=== PATIENT | female | born 1935 | race Hispanic/Latino ===

== ENCOUNTER 2016-09-11 10:35 | Inpatient (IN) | payer MEDICARE, OTHER ==
[2016-09-11] VITALS (8 sets, daily range): BP systolic 120–153; BP diastolic 29–67; PULSE 70–103; RESP 18–23; O2SAT 82–96
[~2016-09-11] VITALS: Ht 144.8 cm; Wt 71.3 kg
[~2016-09-11 10:35] MED LIST: AMT25T PO; CHOL100043 PO; DONE5TAB30 PO; FURO-129 PO; GABA-502 PO; GABA400C PO; LOSA25TA21 PO; LOVA20TA PO; MULT-1018 PO; QUET25TA PO; SERT100T9 PO; SOLI5TAB2 PO; TRAM50TA2 PO
--- NOTE | 2016-09-11 10:38 | ED.REPORT ---
HPI-Dyspnea / Wheezing Date of Service Sep 11, 2016 ED Provider: Can Alejo Patient is an 81 year old female who presents to the ED via EMS complaining of SOB onset today. She was seen at the doctor yesterday for fever (99-100) and cough where she was diagnosed with the flu. She has not began her course of Tamiflu but has taken two doses of azithromycin yesterday (none today). Today her fever has continued to rise and she developed SOB. She denies chest pain, nausea, vomiting, or any other symptoms. Speech is difficult to understand at baseline. Patient is a poor historian. Per family, patient is FULL CODE. Nursing Notes Stated Complaint: COUGH/ FLU SYMPTOMS Nursing Notes Reviewed: Yes (Ide[employer] not reconciled) Allergies: Coded Allergies: ibuprofen (Verified Adverse Reaction, Mild, Nausea, 07/15/16) Scheduled Amitriptyline (Amitriptyline) 25 Mg Tab 25 MG PO HS Cholecalciferol (Vitamin D3) (Vitamin D) 1,000 Unit Tablet 1,000 UNIT PO DAILY Donepezil (Donepezil) 5 Mg Tablet 10 MG PO AM Furosemide (Lasix) 20 Mg Tablet 20 MG PO DAILY Gabapentin (Gabapentin) 300 Mg Capsule 600 MG PO HS Gabapentin (Neurontin) 400 Mg Capsule 600 MG PO DAILY Losartan Potassium (Losartan Potassium) 25 Mg Tablet 25 MG PO DAILY Lovastatin (Lovastatin) 20 Mg Tablet 20 MG PO DAILY Multivitamin (Multi Vitamin Daily) 1 Each Tablet 1 EACH PO DAILY Quetiapine Fumarate (Seroquel) 25 Mg Tablet 50 MG PO HS Sertraline HCl (Sertraline) 100 Mg Tablet 100 MG PO HS Solifenacin Succinate (Vesicare) 5 Mg Tablet 5 MG PO HS Tramadol (Tramadol) 50 Mg Tablet 50 MG PO AM General Time Seen by MD: 10:37 Chief Complaint Shortness of breath Hx Obtained From: Other family... Arrived By: Ambulance Recent Healthcare: Recent doctor visit Past Medical History Past Medical History Notes: Patient seen yesterday at Dr. Marvin Christiansen's outpatient office for cough and weakness, flu test positive started on Tamiflu, also empiric azithromycin provided. Also urine done, negative, no culture indicated Past Medical History mild dementia chronic pain due to degenerative disk disease of the spine chronic depression mild chronic kidney disease mild chronic thrombocytopenia diabetes hypertension Past Surgical History Reports: Back/neck surgery Smoking History Never Smoker Social History Alcohol Use: Denies alcohol use Drug Use: Denies drug use Other Social History: Good social support Review of Systems Constitutional: Reports: Fever Respiratory: Reports: Non-productive cough, Shortness of breath Cardiovascular: Denies: Chest pain Complete sys rev & neg: except as marked. GI: Denies: Nausea, Vomiting Physical Exam Initial Vital Signs Vital Signs (First) Date Time Temp Pulse Resp B/P Pulse Ox O2 Delivery O2 Flow Rate FiO2 09/11/16 10:45 37.7 103 22 153/43 82 Room Air 09/11/16 10:48 4 Initial VS: Reviewed, Unavailable Head / Eyes: Atraumatic, Normocephalic Abdomen / GI: Soft, Non-tender Skin: Warm, Dry General/Constitutional: Awake, Alert Demented Speech difficult to understand. Neck: Atraumatic Wheezing / Retractions: Positive: Wheezing mild (scattered ) Scattered wheezes and rhonchi Sputtering cough Not dyspnic Cardiovascular: Heart rate NL, Peripheral circulation NL ENT: Airway patent Mouth: Positive: Mucous membranes dry Right Elbow: Positive: Deformity present R elbow has abnormality, chronic Ankle / Foot: No swelling Chronic foot drop. Interpretation & Diagnostics Lab Results Interpretation Result Diagram: 09/11/16 1030 09/11/16 1030 Test 09/11/16 10:30 09/11/16 11:50 09/11/16 12:13 White Blood Count 13.9th/mm3 (3.8-10.1) Red Blood Count 3.15mil/mm3 (3.90-5.20) Hemoglobin 10.6g/dL (12.0-15.6) Hematocrit 32.6% (35.0-46.0) Mean Corpuscular Volume 103.5fL (81-100) Mean Corpuscular Hemoglobin 33.7pg (27.0-35.0) Mean Corpuscular Hemoglobin Concent 32.5% (32.0-37.0) Red Cell Distribution Width 14.8% (12.3-15.4) Platelet Count 85bil/L (150-400) Neutrophils (%) (Auto) 77.1% (40-74) Lymphocytes (%) (Auto) 13.3% (14-46) Monocytes (%) (Auto) 8.9% (4-12) Eosinophils (%) (Auto) 0.1% (0-5) Basophils (%) (Auto) 0.2% (0-3) Sodium Level 139mEq/L (134-144) Potassium Level 4.1mEq/L (3.5-5.2) Chloride Level 99mEq/L (97-108) Carbon Dioxide Level 29mmol/L (18-29) Blood Urea Nitrogen 19mg/dL (8-27) Creatinine 1.09mg/dL (0.57-1.00) Estimat Glomerular Filtration Rate 69mL/min (>59) Glucose Level 99mg/dL (60-99) Calcium Level 9.4mg/dL (8.5-10.1) Total Bilirubin 1.0mg/dL (0.0-1.2) Aspartate Amino Transf (AST/SGOT) 106U/L (0-50) Alanine Aminotransferase (ALT/SGPT) 38U/L (0-32) Alkaline Phosphatase 233U/L (25-165) Troponin T 0.049ug/L (0.0-0.011) Total Protein 7.3g/dL (6.4-8.4) Albumin 2.4g/dL (3.4-5.0) Lactic Acid Level 2.2mmol/L (0.4-2.0) Urine Color Yellow (YELLOW) Urine Appearance Hazy (CLEAR,HAZY) Urine pH 6.0 (5.0-8.0) Urine Specific Kenneth 1.018 (1.003-1.035) Urine Protein 100mg/dL (NEG,TRACE) Urine Glucose (UA) Negativemg/dL (NEGATIVE) Urine Ketones Negativemg/dL (NEGATIVE) Urine Occult Blood Moderate (NEGATIVE) Urine Nitrite Negative (NEGATIVE) Urine Bilirubin Negative (NEGATIVE) Urine Urobilinogen Normalmg/dL (NORMAL) Urine Leukocyte Esterase Negative (NEGATIVE) Urine RBC 0-2/hpf (0-2) Urine WBC 0-5/hpf (0-5) Urine Epithelial Cells Occasional/hpf (NONE-MOD) Urine Crystals Amorphous urates (NONE Urine Bacteria None/hpf (NONE-FEW) Urine Hyaline Casts Occasional/lpf (NONE) Urine Granular Casts None seen (NONE SEEN) Urine Waxy Casts None seen (NONE SEEN) Urine Red Blood Cell Casts None seen (NONE SEEN) Urine White Blood Cell Casts None seen (NONE SEEN) Urine Mucus None seen (None Seen) Urine Trichomonas None seen (NONE SEEN) Urine Yeast None (NONE SEEN) Urinalysis Comment Renal epi seen Urine Culture Reflexed Not indicated Lab Results Interpretation: CBC positive leukocytosis, mild thrombocytopenia, chronic CMP normal Influenza positive at PCP office yesterday Blood culture 2 pending Lactic acid 2.2, marginally elevated Troponin elevated, suspect primary hypoxia rather than primary cardiac ECG Interpretation Time: 11:22 Interpreted by: ED physician ECG Interpretation: Sinus rate 84 No ischemic changes Time: 13:09 Interpreted by: ED physician X-Ray Chest Interpretation Chest Xray Interpretation: IMPRESSION: Worsening right lung opacities raising the possibility of developing pneumonia, in the setting of pulmonary edema. Please correlate clinically Dictated by: Juan Alexandra M.D. on 09/11/2016 at 14:20 Approved by: Juan Alexandra M.D. on 09/11/2016 at 14:20 View: Portable, 1 view Interpretation / Wet Read by: Interpret - Radiologist Re-Eval/Medical Decision Med Decision/Clinical Course This is an 81-year-old female is had a cough and congestion over the past week, was seen yesterday basically's office diagnosed with a positive influenza, questionable pneumonia and started on Tamiflu and Zithromax. Palpation worsening shortness of breath and global weakness and was brought in, and found to be significantly hypoxic. She is full code according to family. She does have moderate dementia, and yesterday she had radiographs of her lumbar spine which the radiologist concern about metastatic breast cancer-1 about this up, family question any known history of breast cancer. They report issue that brought them in today however, was the respiratory one. She has a hacking cough, mildly short of breath but not severely dyspneic, but does have a significant O2 requirement and required 4 L to maintain oxygenation. Treatment today's consistent with pneumonia. Blood work is also consistent- positive leukocytosis and mild lactic acidosis. Blood cultures, started on ceftriaxone and Zithromax, to continue Tamiflu, isolation precautions for influenza were continued. The patient is receiving IV fluids. The patient is being admitted for continued management and the case discussed with hospitalist. Source of Hx: Old records Re-Evaluation/Progress : Time of Eval: 11:06 Re-Evaluation/Progress Note: Discussed desire for admission with patient's family. Patient's family understands and agrees with plan. All questions addressed at this time. Consultation : Referral / Consult Name: Paulo Hinkle MD Consulted With: Hospitalist Call Returned at: 13:00 Archeology Faculty Member: Will see patient, Agrees with eval, Agrees with plan, Accepts admit Note: Discussed patient's case. Accepts admit. Differential Diagnosis: Positive: Pneumonia, Negative: Airway obstruction, Cardiogenic shock, Foreign body airway, Pulmonary embolism, Respiratory failure Counseled Regarding: Diagnosis, Lab results, Need for admission Discharge & Departure Impression: Primary Impression: Pneumonia Pneumonia type: due to unspecified organism Laterality: bilateral Lung location: lower lobe of lung Qualified Code: J18.9 - Pneumonia, unspecified organism Additional Impressions: Hypoxia Influenza Elevated troponin Elevated lactic acid level Disposition: ADMITTED TO HOSPITAL Referrals: Estelita Santos (PCP) Scribe Attestation Portions of this note were transcribed by Collette Lozano. I, Dr. North personally performed the history, physical exam and medical decision-making; I reviewed and confirmed the accuracy of the information in the transcribed note. Signed by: Collette Lozano 09/11/16, 1500 copies to: Matt Mark MD, Matthew F MD Sep 11, 2016 10:38 COLLETTE LOZANO Sep 11, 2016 11:07
[2016-09-11] MEDS ORDERED: Albuterol-Ipratropium 3 mL Inhalation Solution NEB ONE (10:50)
[2016-09-11] MEDS ORDERED: 0.9% Sodium Chloride 1,000 ML IV ONE (10:50)
[2016-09-11 11:03] LABS: BASOPHILS % (AUTO) 0.2 % (0-3); EOSINOPHILS % (AUTO) 0.1 % (0-5); MONOCYTES % (AUTO) 8.9 % (4-12); Mean Corpuscular Hemoglobin 33.7 pg (27.0-35.0); Mean Corpuscular Volume 103.5 fL (81-100); NEUTROPHILS % (AUTO) 77.1 % (40-74); Platelet Count 85 bil/L (150-400)
[2016-09-11 12:03] LABS: TROPONIN T 0.049 ug/L (0.0-0.011)
[2016-09-11 12:40] LABS: APPEARANCE,URINE HAZY (CLEAR,HAZY); COLOR,URINE YELLOW (YELLOW)
[2016-09-11] MEDS ORDERED: cefTRIAXone Inj 2,000 MG in IV Premix 1 EACH IV ONE (12:40)
[2016-09-11 12:41] LABS: OCCULT BLOOD,URINE MODERATE (NEGATIVE); UROBILINOGEN,URINE NORMAL (NORMAL)
[2016-09-11] MEDS ORDERED: Ondansetron 2 mg/mL 2 mL Inj IVPUSH PRN (13:00)
[2016-09-11] MEDS ORDERED: Polyethylene Glycol (PEG) 17 Gm Powder PO PRN (13:00)
[2016-09-11] MEDS: 0.9% Sodium Chloride 1,000 ML IV SCH ×2 (13:30→22:56)
--- NOTE | 2016-09-11 13:46 | PCM.HPMED ---
Subjective Date of Service Sep 11, 2016 Primary Provider: Admitting Physician: Paulo Hinkle MD Primary Care Physician: Estelita Santos Attending Physician: Paulo Hinkle MD Admit Status: From the Emergency Department, Full Admit, Admit to [facility], [facility] Telemetry Chief Complaint: Cough, dyspnea, although a troponin. History of Present Illness: This is a pleasant 81-year-old female who lives at home with family. She has a history of dementia. She has been in L4 approximately 3 or 4 days with rhinorrhea and a cough. Because of increased weakness and dyspnea as well as persistence of cough she was seen in urgent care yesterday. Nasal PCR was positive for influenza A. There were infiltrates in x-ray. She was given azithromycin and took 2 pills yesterday as well as a prescription for Tamiflu but has not filled this yet. She came in today because of persistence or worsening of all the above-mentioned symptoms. She also has anorexia and feels generally dehydrated. No fevers chills or rhinitis. She denies diarrhea. She is not really having chest or abdominal pain Review of Systems: No fever she does have hearing loss. No visual changes. No hematuria or dysuria. No fevers or chills. No vomiting. No myalgias. Also reviewed and otherwise negative except as noted in history of present illness Allergies Coded Allergies: ibuprofen (Verified Adverse Reaction, Mild, Nausea, 07/15/16) Home Medications Losartan 25 mg daily, lovastatin 20 mg daily, tramadol 50 mg twice a day as needed donepezil 10 mg daily vitamin D 1000 units daily quetiapine 25 mg as needed sertraline 100 mg daily Vesicare 5 mg daily gabapentin 400 mg daily daily at bedtime amitriptyline 25 mg for neuropathy PMH 1. Dementia 2. Hypertension 3. Chronic pain syndrome. 4. Restless leg syndrome 5. Neuropathy a right foot drop which is chronic following back surgery. Surgical History Lower back surgery, residual right foot drop Social History Hx Alcohol Use: Yes Hx Substance Use: No Smoking Status: Never Smoker Living Arrangement: with Family Exam Vital Signs Vital Sign - Last Date Time Temp Pulse Resp B/P Pulse Ox O2 Delivery O2 Flow Rate FiO2 09/11/16 12:33 90 23 134/29 96 Nasal Cannula 4 09/11/16 10:45 37.7 Exam She is alert and oriented no acute distress. Fluent speech. Normal skull. Anicteric sclerae, symmetric pupils. Normal nose and ears Mouth is unremarkable, dry mucosa. No droop. Neck is supple. Normal thyroid. No adenopathy. Lungs are clear, normal effort. Heart is regular without murmur gallop or rub Abdomen is soft nondistended without focal tenderness. Extremities are free of edema. Good pedal and radial pulses Skin is free of rash, lesions. No petechiae. Cranial nerves are intact Muscles with normal strength. She does have a chronic flexure of the right foot in a plantar flexion. Lab and Diagnostics Labs Troponin elevated 0.054. She does have a history of chronic kidney disease and previous troponin elevation. No known history of heart disease. Result Diagram: 09/11/16 1030 09/11/16 1030 X-Rays, CTs and MRIs Chest x-ray indicates minor bilateral infiltrates 12-lead ECG Sinus rhythm, nonspecific ST segment changes. Assessment & Plan 1. Influenza A. POA. The patient appears to have acute respiratory distress secondary to her flu A. We will start Tamiflu, oxygen supplementation as needed. 2. Possible secondary pneumonia. POA. Azithromycin 250 by mouth daily. 3. Dementia. POA. Donepezil less scheduled 4. Chronic hypertension. POA. Losartan 25 daily. 5. Elevated troponin with history of chronic kidney disease and previous elevations. POA. We will trend. ECG is not alarming. 6. Volume depletion. POA. IV fluids. Patient's code status confirmed with family including 2 daughters one is power of algologist for healthcare. Admitted inpatient status with estimated length of stay of over 2 nights medical complexity and severity of illness. Pain Evaluation: Adequate Pain Control Resuscitation Status: CPR: Attempt Resuscitation Time spent 45 minutes Paulo Hinkle MD Sep 11, 2016 13:46
--- NOTE | 2016-09-11 14:22 | DRSVH ---
PROCEDURE: X-RAY CHEST ONE VIEW, PORTABLE ([id number]) INDICATIONS: fever, shortness of breath, hypoxia TECHNIQUE: One view of the chest was acquired. COMPARISON: [facility], CR, XR CHEST 2VW, 09/10/2016, 14:45. FINDINGS: Surgical changes and devices: Spine fixation hardware . Lungs and pleura: Increasing ill-defined consolidation within the right upper lobe and right lower lo be. Diffuse bilateral groundglass opacities are again noted Mediastinum: Mediastinal contours appear normal. Heart size is normal. Bones and chest wall: No suspicious bony lesions. Overlying soft tissues appear unremarkable. IMPRESSION: Worsening right lung opacities raising the possibility of developing pneumonia, in the setting of pul monary edema. Please correlate clinically Dictated by: Juan Alexandra M.D. on 09/11/2016 at 14:20 Approved by: Juan Alexandra M.D. on 09/11/2016 at 14:20
[2016-09-11] MEDS ORDERED: GABA-504 PO (15:17)
[2016-09-11] MEDS ORDERED: DONE10TA42 PO (15:17)
[2016-09-11] MEDS: Heparin 5,000 Unit/mL Inj SUBQ SCH ×2 (17:37→17:51)
--- NOTE | 2016-09-11 17:57 | NUR ---
admit Pt admitted to PCC room 2030 from ER at 1425, pt has baseline dementia and very hard of hearing, but is cooperative and pleasant with care, accompanied by family. Alert but forgetful. IV NS@100ml/hr infusing per orders. Oriented to room and call light, dang bed alarm and yellow socks, call light in reach. PO tamiflu and zithromax given per orders. Pt had swallow eval at bedside. Intermittent non-productive cough. Turning and positioning q2hr with assist, per daughter pt is bedbound at baseline. Pt with non-blanchable redness on sacrum but no open areas, mepilex applied, melissa 12, PUP initiated. Pt reports improvement in her breathing from this morning. Call light in reach. Will continue to monitor.
--- NOTE | 2016-09-11 23:18 | NUR ---
HARD OF HEARING/Q2 TURNS Pt very hard of hearing, but very pleasant and cooperative with care. Pt's daughter very involved with pt's care. Pt daughter called to check in @ 2200 making sure pt was doing ok. Pt vitals stable, 4L o2 NC sating at 93%. Pulse oximeter placed r/t high score for PARI. Pt is very weak in the lower extremities, Q2 turns. Pt's daughter stated that her mother has been bedridden since June of this year due to he lower extremity weakness. Pt also has right foot drop. No other issues noted at this time.
[2016-09-12] VITALS (9 sets, daily range): BP systolic 120–181; BP diastolic 49–73; PULSE 79–88; RESP 18–20; O2SAT 91–96
[2016-09-12] MEDS: Heparin 5,000 Unit/mL Inj SUBQ SCH ×4 (00:20→19:50)
[2016-09-12 03:49] LABS: BASOPHILS % (AUTO) 0.3 % (0-3); EOSINOPHILS % (AUTO) 0.1 % (0-5); Mean Corpuscular Hemoglobin 33.6 pg (27.0-35.0); Mean Corpuscular Volume 101.7 fL (81-100); NEUTROPHILS % (AUTO) 86.2 % (40-74); Platelet Count 76 bil/L (150-400)
[2016-09-12] MEDS: 0.9% Sodium Chloride 1,000 ML IV SCH ×2 (09:22→19:48)
--- NOTE | 2016-09-12 11:35 | PCM.PNMED ---
Subjective Date of Service Sep 12, 2016 Subjective She is doing well. She still has a cough mostly nonproductive. She feels a little less short of breath. No chest pain or palpitations no bowel pain or nausea. Exam Vital Signs Vital Sign - Last Date Time Temp Pulse Resp B/P Pulse Ox O2 Delivery O2 Flow Rate FiO2 09/12/16 10:04 82 09/12/16 08:35 Supplement Oxygen 09/12/16 07:34 36.8 150/52 94 4.00 09/12/16 03:02 18 Intake and Output 09/11/16 09/11/16 09/12/16 Cumulative From/Thru 15:00 23:00 07:00 09/11/16 10:45 - 09/12/16 06:16 Intake Total 1000 ml 550 ml 1224 ml 2774 ml Output Total 300 ml 1 ml 301 ml Balance 1000 ml 250 ml 1223 ml 2473 ml Intake Oral 100 ml 100 ml 200 ml IV Total 1000 ml 450 ml 1124 ml 2574 ml Output Urine Total 300 ml 1 ml 301 ml # Bowel Movements 1 0 1 Exam There are no oriented 3. No distress. Neck is supple. Lungs on the fertility for breath sounds with some rhonchi scattered and expiratory wheezing. Heart is regular without murmur gallop or rub. Abdomen is soft. Extremities are free of edema good pedal pulses. IVs and Medications Medications Reviewed: Medications were reviewed in detail Lab and Diagnostics Result Diagram: 09/12/16 0340 09/12/16 0340 X-Rays, CTs and MRIs Chest x-ray indicates minor bilateral infiltrates 12-lead ECG Sinus rhythm, nonspecific ST segment changes. Assessment & Plan 1. Influenza A. POA. The patient appears to have acute respiratory distress secondary to her flu A. Continue Tamiflu and oxygen as needed. 2. Possible secondary pneumonia. POA. Azithromycin 250 by mouth daily. Respiratory status is stable to improved we will continue this. 3. Dementia. POA. Donepezil less scheduled 4. Chronic hypertension. POA. Losartan 25 daily. 5. Elevated troponin with history of chronic kidney disease stage 3 and previous elevations. POA. We will trend. ECG is not alarming. We will repeat her troponin today. She has had a history of chronic troponin anemia. 6. Volume depletion. POA. IV fluids. She also had a lactic acidosis, we will follow-up with a repeat lactate after volume repletion. Patient's code status confirmed with family including 2 daughters one is power of drive man for healthcare. Admitted inpatient status with estimated length of stay of over 2 nights medical complexity and severity of illness. Pain Evaluation: Adequate Pain Control Resuscitation Status: CPR: Attempt Resuscitation Time spent 25 minutes Paulo Hinkle MD Sep 12, 2016 11:35
--- NOTE | 2016-09-12 18:46 | NUR ---
BM/Bladder Scan Pt had large, firm brown BM earlier in shift, incontinent and wearing brief. Bladder scan revealed 739mls. Pt states, "I want to try to use the bedpan" pt put on bedpan. traffic recorder notified; awaiting orders. Will continue to monitor with frequent rounds.
--- NOTE | 2016-09-12 19:05 | NUR ---
Bladder scan was done at 1650, scanned for 756ml. Nurse is contacting doctor about aliya. Straight cath to happen within the next half hour if no response. Addendum: 09/12/16 at 1907 by PORFIRIO ESPINOZA CNA Amended: Links added.
--- NOTE | 2016-09-12 22:56 | NUR ---
Pt was bladder scanned @ 756 ml per shift report, MARILIA haider'edin, removed 400 ml. Pt stated she felt much better, abdomen soft and non-tender. Pt vitals stable, no c/o pain. Pt repositioned for comfort and skin integrity, Q2 turns. Addendum: 09/13/16 at 0153 by DOUG SMITH RN O2 Pt displayed labored mouth breathing, de-sated to low 80's, O2 via NC was increased from 4L to 8L with minimal change. Pt was switched to an oxy-mask @ 7L O2 and was sating mid 90's. Pt was titrated down to 4L oxy-mask and stayed sating mid-low 90's. Addendum: 09/13/16 at 0646 by DOUG SMITH RN MENTATION Pt lethargic throughout the night, ordered ABG's, pCO2 elevated to 51, and pH 7.312. Pt continues to use oxy-mask 4L and sating mid 90's. Charge nurse and on-coming nurse notified of current ABG results.
[2016-09-13] VITALS (10 sets, daily range): BP systolic 98–120; BP diastolic 53–68; PULSE 75–83; RESP 18–30; O2SAT 91–97
[2016-09-13] MEDS: 0.9% Sodium Chloride 1,000 ML IV SCH ×2 (01:55→18:23)
--- NOTE | 2016-09-13 06:22 | ABG ---
DateTimeAnalyzed 06:18:00 -_ pH ____7.312 - 7.350 7.450 pCO2 ___50.5__ -mmHg 35.0 45.0 pO2 ___74.3__ -mmHg 69.0 116 HCO3- ___24.8__ -mmol/L 22.0 26.0 ABE ___-1.1__ -mmol/L -2.0 2.0 tHb ____8.9__ -g/dL O2Hb ___91.5__ -% COHb ____0.9__ -% MetHb ____1.3__ -% sO2 ___93.6__ -% FIO2 ___31.0__ -% Drawn By blf - Date/Time Notified____ 06:22:00 -_ Spontaneous_RR ___26.0__ -b/min Liter_Flow ____4.0__ -L/min Oxygen Device 1 _OXY MASK - Notified By blf - Notified Whom RN - B 747 -mmHg tO2 ___11.5__ -Vol% Paulo test _Positive -
[2016-09-13] MEDS ORDERED: 0.9% Sodium Chloride 250 ML IV ONE (10:35)
--- NOTE | 2016-09-13 10:37 | PCM.PNMED ---
Subjective Date of Service Sep 13, 2016 Subjective More short of breath, more cough. More tachypneic. May be more confused. Denies pain. Exam Vital Signs Vital Sign - Last Date Time Temp Pulse Resp B/P Pulse Ox O2 Delivery O2 Flow Rate FiO2 09/13/16 06:36 Supplement Oxygen 09/13/16 03:06 36.4 78 18 120/68 94 4.00 Intake and Output 09/12/16 09/12/16 09/13/16 Cumulative From/Thru 15:00 23:00 07:00 09/11/16 10:45 - 09/13/16 06:36 Intake Total 1630 ml 770 ml 5174 ml Output Total 301 ml Balance 1630 ml 770 ml 4873 ml Intake Oral 400 ml 350 ml 950 ml IV Total 1230 ml 420 ml 4224 ml Output Urine Total 301 ml # Voids 3 3 # Bowel Movements 2 1 4 Exam In moderate distress. She is tachypneic and has secretions. Anicteric sclera. Neck supple. Lungs expiratory wheezes scattered rhonchi and increased effort and rate. Heart is regular without murmur gallop or rub Abdomen is soft nontender extremities are free of edema good pedal pulses. IVs and Medications Medications Reviewed: Medications were reviewed in detail Lab and Diagnostics Result Diagram: 09/12/16 1855 09/12/16 0340 X-Rays, CTs and MRIs Chest x-ray indicates minor bilateral infiltrates 12-lead ECG Sinus rhythm, nonspecific ST segment changes. Assessment & Plan 1. Acute hypoxic and hypercarbic respiratory failure. The patient appears to be worsening clinically. Will expand antibiotic coverage, repeat chest x-ray, repeat blood gas which showed early hypercarbia around midnight last night and start BiPAP support. I discussed these interventions with family. 2. Sepsis. The patient is hypotensive has increased evidence of confusion and respiratory failure. We will fluid bolus her and check a lactic acid. Antibiotic coverage has been broadened, we will continue Tamiflu. 3. Influenza A. POA. Continue Tamiflu and oxygen as needed. 4. Possible secondary pneumonia. POA. Azithromycin 250 by mouth daily. Her respiratory status is worsening, will add ceftriaxone every 24 hours. 5. Dementia. POA. Donepezil less scheduled 6. Chronic hypertension. POA. We will hold blood pressure medications. 7. Elevated troponin with history of chronic kidney disease stage 3 and previous elevations. POA. We will trend. ECG is not alarming. We will repeat her troponin today. She has had a history of chronic troponin anemia. We will repeat a troponin. 6. Volume depletion. POA. IV fluids. Patient's code status confirmed with family including 2 daughters one is power of hat brim and crown laminating operator for healthcare. Admitted inpatient status with estimated length of stay of over 2 nights medical complexity and severity of illness. We will re-discuss level of care with family after much her clinical condition next hour or 2. Pain Evaluation: Adequate Pain Control VTE Mechanical Devices: Intermittant Pneumatic CD Resuscitation Status: CPR: Attempt Resuscitation Time spent 30 minutes Paulo Hinkle MD Sep 13, 2016 10:37
[2016-09-13] MEDS: Tolterodine ER 2 mg ER24 Capsule PO SCH (10:41)
[2016-09-13] MEDS: Heparin 5,000 Unit/mL Inj SUBQ SCH ×2 (10:41→18:23)
--- NOTE | 2016-09-13 11:24 | ABG ---
DateTimeAnalyzed 11:19:00 -_ pH ____7.358 - 7.350 7.450 pCO2 ___43.9__ -mmHg 35.0 45.0 pO2 ___68.5__ -mmHg 69.0 116 HCO3- ___24.1__ -mmol/L 22.0 26.0 ABE ___-0.8__ -mmol/L -2.0 2.0 tHb ____9.3__ -g/dL O2Hb ___91.0__ -% COHb ____0.9__ -% MetHb ____1.1__ -% sO2 ___92.9__ -% FIO2 ___21.0__ -% Pressure_Support ___12.0__ -cmH2O PEEP ____7.0__ -cmH2O Drawn By lw - Date/Time Notified____ 11:24:00 -_ Spontaneous_RR ___24.0__ -b/min Oxygen Device 1 NPPV - Notified By lw - Notified Whom ___Dr. Manan - B 748 -mmHg tO2 ___12.0__ -Vol% Paulo test _Positive -
[2016-09-13] MEDS: cefTRIAXone Inj 1,000 MG in IV Premix 1 EACH IV SCH (11:56)
[2016-09-13] MEDS: MethylprednisoLONE Sodium Succinate 40 mg/mL Inj IVPUSH SCH ×2 (11:56→18:23)
[2016-09-13] MEDS: Albuterol 0.5% (5mg/mL) 20 mL Inhalation Solution NEB SCH ×3 (12:30→20:30)
--- NOTE | 2016-09-13 12:51 | NUR ---
09/13/16 Wound Care [facility] Patient assessed per pressure ulcer protocol. Patient with multiple areas of bruising. Stage I non-blanchable red area to sacrum present on admission. Remainder of skin intact. Patient and family instructed in q2 hour turning. Daughter states patient has been using donut cushion at home due to redness. Patient currently on low air loss bed. Nursing to turn q2 hours and float heels. Remainder of skin intact. Wound care to follow up as needed.
--- NOTE | 2016-09-13 13:19 | NUR ---
NUTRITION CONSULT Assess: 81 YO F admitted for pneumonia and positive for flu. Pt with poor PO intake. PMHX: Dementia, HTN, chronic pain syndrome, restless leg syndrome, neuropathy. DIET: Full liquids. PO intake bites-25%. LABS: Lactic acid 2.3, (09/12): Ca 8.4, Alb 1.9 MEDICATIONS: Reviewed. Solu-medrol. GI: 1 BM 09/13. SKIN: Stg 1 non-blanchable red area to sacrum per wound eval. WEIGHT: 66.8 kg, BMI 31.9 kg/m2. IBW 42.7 kg ESTIMATED NEEDS: BMI/WOUND Calories: 0880-9143 kcal/day (22-25 kcal/kg BW) Protein: 64-77 g/day (1.5-1.8 g/kg IBW) NUTRITION DIAGNOSIS: 1) Inadequate oral intake related to decreased ability to consume sufficient nutrition as evidenced poor PO intake on full liquid diet. 2) Increased nutrient needs related to wound healing as evidenced by Stg 1 sacral wound. INTERVENTION: 1) Will add nutrition supplements to encourage adequate nutrition and aid in wound healing. MONITOR/EVALUATE: PO intake, diet advance/tolerance, labs, GI/nutrition status. Follow per moderate nutrition risk guidelines.
[2016-09-13 14:25] LABS: Mean Corpuscular Hemoglobin 33.2 pg (27.0-35.0); Mean Corpuscular Volume 101.8 fL (81-100)
--- NOTE | 2016-09-13 14:47 | DRSVH ---
PROCEDURE: X-RAY CHEST ONE VIEW, PORTABLE ([id number]) INDICATIONS: dyspnea TECHNIQUE: One view of the chest was acquired. COMPARISON: [facility], CR, XR CHEST 1VW (PORTABLE), 09/11/2016, 11:56. FINDINGS: Surgical changes and devices: Upper lumbar spine fusion. Lungs and pleura: Bilateral diffuse airspace infiltrates are increased. No pleural effusions or pneu mothorax. Mediastinum: Mediastinal contours appear normal. Heart size is normal. Bones and chest wall: No suspicious bony lesions. Overlying soft tissues appear unremarkable. IMPRESSION: Bilateral airspace infiltrates are increased, compatible with worsening of pneumonia or p ulmonary edema. Dictated by: Kerry Pickett M.D. on 09/13/2016 at 14:45 Approved by: Kerry Pickett M.D. on 09/13/2016 at 14:45
--- NOTE | 2016-09-13 16:42 | NUR ---
spiritual care:pt request conversational visit with pt's dtrs at bedside. Pt hard of hearing and fatigued from effort of breathing. Prayer at bedside, dtrs participating. pt jain and agreeable for eucharistic visitors. will plan to follow as needed
--- NOTE | 2016-09-13 19:29 | NUR ---
Pisano/Urinary output/Fluids/Oxygen Patient alert and oriented x2 (did not know year), pleasant, very [place]. Bladder scanner showed greater than 500ccs -- MD consulted, order to place pisano catheter. Urine was seen in tubing, only 50 ccs drained despite placing patient in reverse Trendelenburg. Irrigated with sterile water, no resistance with pushing or drawing back -- fluid irrigated was dark yellow and cloudy. Approx 1 hour later bladder rescanned, still showed over 500ccs -- still only 50ccs in bag, charge nurse notified. New pisano placed, still no more output despite urine seen in irrigation syringe. MD notified, no new orders at this time, care ongoing -- NOC RN aware. Total input of NS 862. Patient placed on Bipap by RT, much more alert and SPO2 remaining in mid 90s.
[2016-09-13] MEDS ORDERED: Albuterol 2.5 mg/3 mL Inhalation Solution NEB ONE ×2 (20:49→23:46)
--- NOTE | 2016-09-13 21:02 | DRSVH ---
[facility] [address] [place] [address] Echocardiogram Report Name: ELIANA AMEZCUA Study Date: 09/13/2016 Height: 57 in Hospital Exam Location: [facility] Weight: 147 lb Gender: Female BSA: 1.6 m2 : 1935 Age: 81 yrs BP: 98/54 mmHg Reason For Study: Dyspnea Ordering Physician: AMEYA LONDON Performed By: Sonal Gil Referring Physician: AMEYA LONDON Interpretation Summary Normal left ventricle size with ejection fraction 60-65%. Grade I diastolic dysfunction. Moderately dilated left atrium. Mildly dilated right atrium. There is no hemodynamically significant valvular aortic stenosis. Mild mitral annular calcification. Mild tricuspid regurgitation. Comparison is made with the echocardiogram of 07/17/16, there has been no significant change. Procedure: A two-dimensional transthoracic echocardiogram with color flow and Doppler was performed. The study quality was technically adequate. Patient supine and on BiPAP machine. Comparison is made with the echocardiogram of 07/17/16. The patient was in normal sinus rhythm during the exam. Left Ventricle: The left ventricle is normal in size. There is normal left ventricular wall thickness. Left ventricular systolic function is normal. The ejection fraction is estimated to be 60-65%. There are no focal wall motion abnormalities. Assessment of diastolic parameters indicates a relaxation abnormality of the left ventricle, consistent with normal filling pressures. Spectral Doppler of the mitral valve is reversed, with an E/A wave ratio < 0.8. Right Ventricle: The right ventricle is normal in size and function. Atria: The left atrium is moderately dilated. The right atrium is mildly dilated. The interatrial septum is intact with no evidence for an atrial septal defect. Mitral Valve: The mitral valve leaflets appear normal. There is no evidence of stenosis, fluttering, or prolapse. There is mild mitral annular calcification. There is no mitral regurgitation noted. Aortic Valve: The aortic valve is trileaflet. The aortic valve opens well. There is slight thickening of the non coronary cusp. There is no hemodynamically significant valvular aortic stenosis. The calculated aortic valve area is 1.7 cm2. The peak aortic velocity is 2.5 m/sec. The aortic valve mean gradient is 13 mmHg. No aortic regurgitation is present. Tricuspid Valve: The tricuspid valve is normal. There is mild tricuspid regurgitation. Pulmonary artery pressures cannot be estimated because of the lack of a measurable TR jet velocity. Pulmonic Valve: The pulmonic valve leaflets are thin and pliable; valve motion is normal. There is trace pulmonic regurgitation. Great Vessels: The aortic root is normal size. The ascending aorta is normal in size. The aortic arch is normal in size. The pulmonary artery is normal size. The IVC is normal in size, collapse could not be accurately assessed. Pericardium/ Pleura There is no pericardial effusion. There is a small left -sided pleural effusion. Ascites is also visualized. MMode/2D Measurements & Calculations LVIDd: 4.6 cm RA long axis LVOT diam: 1.9 cm LVIDs: 3.1 cm LA A2 area: 26.8 cm AoV Openin.4 cm FS: 32.0 % LA A4 area: 24.5 cm RA area Ao root diam: 3.1 cm EPSS: 0.41 cm LA length (vol) asc Aorta Diam IVSd: 0.99 cm : 20.6 cm LVPWd: 0.96 cm LA vol: 94.5 ml RA vol Ao Arch Diam LA vol index : 66.8 ml (Proximal trans.) RA : 42.3 mm2 IVC diam: 1.5 cm LV sharma. diameter/BSALV sys. diameter/BSA TAPSE: 2.5 cm (cm/m^2): 2.9 (cm/m^2): 2.0 Doppler Measurements & Calculations Ao V2 max MV E max ian MV E/A: 0.66 PA V2 max : 246.8 cm/sec : 104.2 cm/sec Med Peak E' Ian : 150.5 cm/sec Ao max P.4 mmHg MV A max ian PA mean PG Ao mean P.7 mmHg : 158.6 cm/sec E/E' med: 14.3 : 6.0 mmHg LVOT Max Ian Lat Peak E' Ian : 139.1 cm/sec E/E' lat: 13.1 HAYLEY(I,D): 1.7 cm MV A dur sev ratio: 0.63 : 0.13 sec MV dec time: 0.24 sec Ao V2 mean LV V1 max PG PA V2 mean : 167.6 cm/sec : 118.7 cm/sec Ao V2 VTI: 49.6 cmLV V1 VTI PA pr(Accel) : 31.0 cm : 5.8 mmHg HAYLEY(V,D): 1.5 cm2 HAYLEY indexed to BSA E/e' average (cm^2/m^2): 1.1 : 13.7 Electronically signed by: Caio Shane on Reading Physician:09/13/2016 09:01 PM
[2016-09-13] MEDS ORDERED: Furosemide 10 mg/mL 4 mL Inj IVPUSH ONE (21:50)
[2016-09-14] VITALS (11 sets, daily range): BP systolic 97–110; BP diastolic 40–58; PULSE 72–84; RESP 20–24; O2SAT 74–95
[2016-09-14] MEDS: Heparin 5,000 Unit/mL Inj SUBQ SCH ×3 (00:47→17:31)
[2016-09-14] MEDS: MethylprednisoLONE Sodium Succinate 40 mg/mL Inj IVPUSH SCH ×3 (00:47→17:31)
[2016-09-14] MEDS: Albuterol 2.5 mg/3 mL Inhalation Solution NEB SCH ×5 (04:01→22:14)
[2016-09-14] MEDS: 0.9% Sodium Chloride 1,000 ML IV SCH ×2 (05:26→12:55)
--- NOTE | 2016-09-14 06:14 | NUR ---
Urinary output/sats/possible thrush Bojorquez bag was dry after several hours at start of shift. Bladder scanner showed about 500 ml. Bojorquez position checked, and flushed with return of very small amount of yellow urine. notified and orders for 40 IV Lasix. Emptied 100 ml total urine from catheter for this shift. Turning pt every 2-3 hours. IV site changed due to occlusion. Sats in mid-90's on bipap. Family have been at bedside - attentive to patient's needs and expressing a lot of anxiety over her condition. Pt tongue red with white coating. C/o soreness. notified and orders for Diflucan. Family aware.
[2016-09-14] MEDS: Tolterodine ER 2 mg ER24 Capsule PO SCH (08:30)
[2016-09-14 08:56] LABS: Mean Corpuscular Hemoglobin 33.7 pg (27.0-35.0); Mean Corpuscular Volume 102.6 fL (81-100)
[2016-09-14 09:47] LABS: TROPONIN T 0.046 ug/L (0.0-0.011)
[2016-09-14] MEDS: cefTRIAXone Inj 1,000 MG in IV Premix 1 EACH IV SCH (10:57)
--- NOTE | 2016-09-14 11:18 | DRSVH ---
PROCEDURE: X-RAY CHEST ONE VIEW, PORTABLE ([id number]) INDICATIONS: dyspnea TECHNIQUE: One view of the chest was acquired. COMPARISON: [facility], CR, XR CHEST 1VW (PORTABLE), 09/13/2016, 11:10. FINDINGS: Surgical changes and devices: Partially visualized cervical fixation screws and fixation plate.. Lungs and pleura: No pleural effusions or pneumothorax. Lungs are abnormal with a diffuse alveolar infiltration pattern but improved from the comparison study one day ago. Mediastinum: Mediastinal contours appear normal. Heart size is normal. Bones and chest wall: No suspicious bony lesions. Overlying soft tissues appear unremarkable. IMPRESSION: Mild interval improvement in the diffuse alveolar infiltration pattern previously present . Incidental note is again made of partially visualized fixation devices over the cervical spine, wh ich could be more accurately assessed by dedicated plain film evaluation through that area if clinica lly desired. Dictated by: Juan Ledesma M.D. on 09/14/2016 at 11:16 Approved by: Juan Ledesma M.D. on 09/14/2016 at 11:16
[2016-09-14] MEDS ORDERED: 0.9% Sodium Chloride 250 ML IV ONE (12:05)
--- NOTE | 2016-09-14 14:13 | NUR ---
Social Work Initial Assessment: SW met with patient at bedside to discuss discharge plan. Patient unable to participate in discharge planning. Patient PONneka/daughter Viola, and Adriana, verified patient information. Patient resides in [facility] with who is frail and provides all support and care for patient. Patient daughter/PONneka Rod states that patient unable to provide support and care due to patient extensive care needs. Patient active with [facility]. Patient has a walker, wheelchair, and commode at home. Patient has previous SNF history at [facility] and wanting SNF placement for detention care upon discharge. Patient payor as Medicare and [employer]. Patient has no detention disability nor VA benefits. Patient pharmacy of choice as [facility]. Patient daughter states that plan is for SNF placement at [facility] for detention care. SW provided SNF list to patient daughter for review for alterative SNF choice. ANGELA provided access to [facility] and faxed face sheet. ANGELA spoke to [facility] admissions rep who was made aware of referral. SW to await clinical acceptance from SNF. Patient on Bipap at this time. SW to follow. PLAN: Possible SNF [facility] (access provided) for backup administrative coordinator care, pending acceptance and clinical course. Current with [facility]. Family unable to care for patient needs at home. Daniela COMBS Addendum: 09/14/16 at 1429 by BO ALVARENGA Amended: Links added. Addendum: 09/14/16 at 1541 by BO ALVARENGA SW contacted and left voice mail message for RONALD Louise to determine if Medicaid application able to be initiated as patient family seeking detention care. ANGELA to follow. Daniela COMBS
--- NOTE | 2016-09-14 15:40 | PCM.PNMED ---
Subjective Date of Service Sep 14, 2016 Subjective Patient is somnolent on BiPAP. Appears comfortable. Can't answer questions. Exam Vital Signs Vital Sign - Last Date Time Temp Pulse Resp B/P Pulse Ox O2 Delivery O2 Flow Rate FiO2 09/14/16 13:13 73 24 95 Nasal Cannula 50 70 09/14/16 11:30 36.8 110/46 Intake and Output 09/13/16 09/13/16 09/14/16 Cumulative From/Thru 15:00 23:00 07:00 09/11/16 10:45 - 09/14/16 05:35 Intake Total 862 ml 412 ml 6448 ml Output Total 100 ml 401 ml Balance 862 ml 312 ml 6047 ml Intake Oral 0 ml 950 ml IV Total 862 ml 412 ml 5498 ml Output Urine Total 100 ml 401 ml # Voids 3 # Bowel Movements 4 Exam Comfortable. Anicteric sclera Lungs with expiratory wheezing, incerased effort. CV regular and without murmur Abdomen soft, ND No edema No rash IVs and Medications Medications Reviewed: Medications were reviewed in detail Lab and Diagnostics Result Diagram: 09/14/16 0553 09/14/16 0553 X-Rays, CTs and MRIs Chest x-ray indicates minor bilateral infiltrates 12-lead ECG Sinus rhythm, nonspecific ST segment changes. Assessment & Plan 1. Acute hypoxic and hypercarbic respiratory failure. The patient appears to be worsening clinically. She has needed BiPAP over night We will continue ABx, tamiflu, repeat CXR and try HF Oxygen. Will re discuss intubation with family as she is not a great candidate for this. 2. Sepsis. The patient is hypotensive has increased evidence of confusion and respiratory failure. We will fluid bolus her and check a lactic acid. Antibiotic coverage has been broadened, we will continue Tamiflu. 3. Influenza A. POA. Continue Tamiflu and oxygen as needed. 4. Possible secondary pneumonia. POA. Azithromycin 250 by mouth daily. Her respiratory status is worsening, will add ceftriaxone every 24 hours.CXR appears a little better. 5. Dementia. POA. Donepezil less scheduled 6. Chronic hypertension. POA. We will hold blood pressure medications. 7. Elevated troponin with history of chronic kidney disease stage 3 and previous elevations. POA. We will trend. ECG is not alarming. We will repeat her troponin today. 8. Volume depletion. POA. IV fluids. She also has low UOP. 9. Lactic acidosis, POA. Continue IVF, and ABx. Follow lactate. Patient's code status confirmed with family including 2 daughters one is power of senior trial attorney for healthcare. Admitted inpatient status with estimated length of stay of over 2 nights medical complexity and severity of illness. We will re-discuss level of care with family after much her clinical condition again later today. Pain Evaluation: Adequate Pain Control VTE Mechanical Devices: Intermittant Pneumatic CD Resuscitation Status: CPR: Attempt Resuscitation Time spent 25 minutes Paulo Hinkle MD Sep 14, 2016 15:40
[2016-09-14 16:42] LABS: Mean Corpuscular Hemoglobin 34.2 pg (27.0-35.0); Mean Corpuscular Volume 101.1 fL (81-100)
--- NOTE | 2016-09-14 17:06 | DRSVH ---
PROCEDURE: US ABDOMEN INDICATIONS: abdomen distension TECHNIQUE: Real-time scanning was performed of the abdominal and retroperitoneal organs, with image documentatio n. COMPARISON: [facility], US, US ABDOMEN, 07/15/2016, 15:16. [facility], ABDOMEN SONOGRAM, 06/26/2013, 9:25. [facility], US, ABDOMEN SON OGRAM, 04/14/2006, 7:42. FINDINGS: Liver length: 12.04 cm Gallbladder Wall Thickness: 3.30 mm CHD: 2.30 mm CBD: 1.20 mm Spleen length: 11.63 cm Right kidney length: 9.20 cm Left kidney length: 8.56 cm Aorta(Proximal): 1.90 cm Aorta(Mid): Not seen Aorta(Distal): Not seen RCIA: Not seen LCIA: Not seen Liver: Liver is normal in size and homogeneous in echotexture. Gallbladder: Within normal limits Biliary ducts: Intrahepatic bile ducts are non-dilated. Extrahepatic bile duct caliber is normal. Normal is 6-7 mm or less in diameter, or 10 mm or less post-cholecystectomy. Pancreas: Not well-seen secondary to bowel gas. Spleen: Spleen is normal in size and homogeneous in echotexture. Kidneys: Kidneys are normal in size and echotexture. No hydronephrosis or nephrolithiasis. No crow d masses. Aorta: Visualized aorta is normal in caliber at less than 3 cm. Iliacs: Proximal common iliac arteries are normal in caliber at less than 2.5 cm. IVC: Intrahepatic inferior vena cava is patent. Miscellaneous: Moderate ascites is present. IMPRESSION: 1. Moderate ascites. 2. Limited evaluation. Dictated by: Machelle Shah M.D. on 09/14/2016 at 17:04 Approved by: Machelle Shah M.D. on 09/14/2016 at 17:04
[2016-09-14 17:11] LABS: TROPONIN T 0.042 ug/L (0.0-0.011)
[2016-09-14] MEDS ORDERED: 0.9% Sodium Chloride 1,000 ML IV ONE (17:50)
--- NOTE | 2016-09-14 19:14 | NUR ---
High Flow/Oliguric Cardiac: Denies chest pain. Tele is sinus rhythm 70's-80's Resp: spo2 mid-90's on bipap this AM. On continuous pulse oximetry. Held pills this AM due to bipap and diminished loc. Pt placed on high flow 60L 70%, SPO2 94%. pt moaning this evening, but denies pain when asked. GI/: No s/s nausea or vomiting. meds crushed in applesauce. Abdominal ultrasound performed this AM. 50ml in pisano bag this AM. Placement checked and flushed. Just a few ccs of yellow urine noted. pisano replaced after discussion with Dr Hinkle. Abdominal US this AM showed very little fluid in bladder. Negligible urine output this shift. Neuro: A&Ox1. Multiple family members with patient. moving all extremities. Very weak.
[2016-09-14] MEDS: Meropenem Inj 1,000 MG in IV Premix 1 EACH IV SCH (21:27)
[2016-09-15] VITALS (10 sets, daily range): BP systolic 100–106; BP diastolic 35–48; PULSE 74–88; RESP 7–24; O2SAT 79–96
[2016-09-15] MEDS: 0.9% Sodium Chloride 1,000 ML IV SCH ×3 (01:01→16:56)
[2016-09-15] MEDS: Heparin 5,000 Unit/mL Inj SUBQ SCH ×3 (01:16→16:30)
[2016-09-15] MEDS: Albuterol 2.5 mg/3 mL Inhalation Solution NEB SCH ×7 (01:41→23:50)
[2016-09-15] MEDS: MethylprednisoLONE Sodium Succinate 40 mg/mL Inj IVPUSH SCH ×3 (02:10→16:30)
[2016-09-15] MEDS ORDERED: 0.9% Sodium Chloride 500 ML IV ONE (02:35)
[2016-09-15 05:48] LABS: Mean Corpuscular Hemoglobin 32.9 pg (27.0-35.0); Mean Corpuscular Volume 100.8 fL (81-100)
--- NOTE | 2016-09-15 06:30 | ABG ---
DateTimeAnalyzed 06:26:00 -_ pH ____7.307 - 7.350 7.450 pCO2 ___34.4__ -mmHg 35.0 45.0 pO2 ___94.5__ -mmHg 69.0 116 HCO3- ___16.7__ -mmol/L 22.0 26.0 ABE ___-8.3__ -mmol/L -2.0 2.0 tHb ____8.6__ -g/dL O2Hb ___94.6__ -% COHb ____0.8__ -% MetHb ____1.2__ -% sO2 ___96.5__ -% FIO2 ___21.0__ -% Drawn By MD - Date/Time Notified____ 06:30:00 -_ Liter_Flow ___60.0__ -L/min Oxygen Device 1 __HI FLOW - Notified By MD - Notified Whom RN E.RESTREPO - B 750 -mmHg tO2 ___11.6__ -Vol% Paulo test N/A -
--- NOTE | 2016-09-15 07:54 | NUR ---
Respiratory/BP/Mentation/UOP High flow increased to 60L and 80%, scheduled neb treatments done. Pt monitored on COUNTER WAITER and sats maintaining about 93%. BPs low 100s/low 40s, this was after bolus from day shift, MD notified, order given for additional 500mL bolus, this did not change BP, MD aware. Pt somnolent at beginning of shift and occasionally moaning. Pt very hard of hearing. Still woke to voice and able to take PO meds, pt denied pain. Elavil held d/t low BP but all other meds given. Pt fell asleep for some time after and was no longer moaning. Pt still waking to voice. MD paged this morning as pt seemed even more somnolent and was very mumbled in her responses, as well as having difficulty opening eyes. ABGs ordered, MD also ordered Vanco and MRSA swab. ABGs showed Bicarb of 16.7. MD aware UOP 25cc for entire shift, MD aware of this as well, Creatinine increased to 2.9, NS fluids running @100.
[2016-09-15] MEDS ORDERED: Vancomycin Dose per Pharmacist XX SCH (08:30)
[2016-09-15] MEDS: Tolterodine ER 2 mg ER24 Capsule PO SCH (08:30)
[2016-09-15] MEDS: Meropenem Inj 1,000 MG in IV Premix 1 EACH IV SCH ×2 (08:59→20:30)
[2016-09-15] MEDS: Morphine 100 mg/100 mL NS 100 MG in IV Premix 1 EACH IV PRN (11:26)
--- NOTE | 2016-09-15 14:24 | PCM.PNMED ---
Subjective Date of Service Sep 15, 2016 Subjective The patient is high flow oxygen, not able to communicate. She also is moaning and appears to be uncomfortable. Exam Vital Signs Vital Sign - Last Date Time Temp Pulse Resp B/P Pulse Ox O2 Delivery O2 Flow Rate FiO2 09/15/16 08:37 36.5 75 16 106/35 96 high flow 80 09/15/16 08:09 60 Intake and Output 09/14/16 09/14/16 09/15/16 Cumulative From/Thru 15:00 23:00 07:00 09/11/16 10:45 - 09/15/16 06:35 Intake Total 1300 ml 7748 ml Output Total 100 ml 25 ml 526 ml Balance 1200 ml -25 ml 7222 ml Intake Oral 950 ml IV Total 1300 ml 6798 ml Output Urine Total 100 ml 25 ml 526 ml # Voids 3 # Bowel Movements 4 Exam Again she is on high flow, but appears uncomfortable and is moaning. Neck is supple. Lungs with increased rate, rhonchi expiratory wheezing and effort. Heart is tachycardic Abdomen is soft nondistended. Extremities are free of edema with good pedal pulses. IVs and Medications Medications Reviewed: Medications were reviewed in detail Lab and Diagnostics Result Diagram: 09/15/16 0530 09/15/16 0530 X-Rays, CTs and MRIs Chest x-ray indicates minor bilateral infiltrates 12-lead ECG Sinus rhythm, nonspecific ST segment changes. Assessment & Plan 1. Acute hypoxic and hypercarbic respiratory failure. The patient appears to be worsening clinically. She has needed BiPAP over night We will continue ABx, tamiflu, repeat CXR and try HF Oxygen. 2. Sepsis. The patient has progressive deterioration in spite of all regional medical measures. She has had persistent recurrent hypotension, severe encephalopathy, advanced progressive renal failure, and persistent lactic acidosis. 3. Influenza A. POA. Continue Tamiflu 4. Possible secondary pneumonia. POA. Patient was escalated from azithromycin and ceftriaxone to meropenem. I did this she has had continued deterioration. . 5. Dementia. POA. 6. Chronic hypertension. POA. 7. Elevated troponin with history of chronic kidney disease stage 3 and previous elevations. POA. We will trend. ECG is not alarming. We will repeat her troponin today. 8. Volume depletion. POA. IV fluids. She also has low UOP. 9. Lactic acidosis, POA. Continue IVF, and ABx. Persistent despite maximal medical therapy. Met with the patient's family today. Have explained that she appears to be deteriorating despite all medical Kamar efforts including Tamiflu fluid resuscitation broad-spectrum antibiotics and combination of BiPAP at high flow nasal cannula oxygen. Today she appears to be in discomfort. Strongly recommended comfort measures and acceptance that this will be a end-of-life event for her. The family analogies they understand and care and we will pursue a morphine drip and a comfort care protocol for her. VTE Mechanical Devices: Intermittant Pneumatic CD Resuscitation Status: DNR/DNI:Do Not Resuscitate/Intubate Time spent 40 minutes Paulo Hinkle MD Sep 15, 2016 14:24
--- NOTE | 2016-09-15 14:49 | NUR ---
Social Work Note: Continued Discharge Planning Data& Assessment: Per pt family is agreeable to transitioning to comfort care. SW available should any needs arise with pt or pt family. SW to continue to follow if any needs arise. Plan: Per pt is transitioning to comfort care and likely to pass in the hospital. SW to continue to follow if any needs arise. GARRET Galicia
--- NOTE | 2016-09-15 15:31 | NUR ---
spiritual care: follow up brief check in with large gathering family, supply teacher visited, no further needs identified. continuing to support as needed.
--- NOTE | 2016-09-15 18:11 | NUR ---
Comfort Care Pt made comfort care this morning. IV Morphine gtt started at 11:30. Rate titrated up to 9mg/hr for RR and comfort. High flow DC'd after discussion with family and pt changed to oxymask for comfort. Unable to DC tele until this evening due to large family presence in the room. Pt's HR remains in the mid 70s. Peripheral pulses are weak, but limbs are still warm. 25ml UOP last shift per NOC report. No measurable UOP today. Pills held this morning due to swallowing safety.
[2016-09-16] MEDS: MethylprednisoLONE Sodium Succinate 40 mg/mL Inj IVPUSH SCH (00:04)
[2016-09-16] MEDS: Heparin 5,000 Unit/mL Inj SUBQ SCH (00:04)
[2016-09-16] MEDS: 0.9% Sodium Chloride 1,000 ML IV SCH (00:05)
[2016-09-16] MEDS: Albuterol 2.5 mg/3 mL Inhalation Solution NEB SCH (00:05)
[2016-09-16] MEDS: Morphine 100 mg/100 mL NS 100 MG in IV Premix 1 EACH IV PRN (00:16)
--- NOTE | 2016-09-16 02:47 | NUR ---
Comfort/ Pt continued on morphine gtt @ 7ml/hr, showing no signs of discomfort, RR low, sats slowly decreased in 70s, oxymask and O2 used for comfort. Multiple family memebers in room, plan of care discussed and questions answered. Time of called w/ second RN at 0043 on 09/16/16. Family given privacy and they took all personal items from room. One daughter signed form saying pt not admitted w/ any belongings or valuables/jewelry. Per a couple family members they have decided on [facility] but have not contacted them yet.
--- NOTE | 2016-09-16 18:16 | PCM.DC.MEX ---
Discharge Summary Date of Service Sep 16, 2016 Dates of Hospitalization Date of Hospital Admission Sep 11, 2016 at 13:22 Date of Expiration: Sep 16, 2016 Time of Expiration: 00:43 Providers: Admitting Physician: Paulo Hinkle MD Primary Care Physician: Estelita Santos Attending Physician: Paulo Hinkle MD Diagnosis at Time of Acute respiratory failure with hypoxia and hypercarbia, secondary to Influenza A pneumonia Additional Diagnosis Obesity class I; dementia. Procedures XRay, CTs & MRIs Chest x-ray indicates minor bilateral infiltrates ECG 12 Lead Sinus rhythm, nonspecific ST segment changes. Brief History History of Present Illness (per admission note): This is a pleasant 81-year-old female who lives at home with family. She has a history of dementia. She has been in L4 approximately 3 or 4 days with rhinorrhea and a cough. Because of increased weakness and dyspnea as well as persistence of cough she was seen in urgent care yesterday. Nasal PCR was positive for influenza A. There were infiltrates in x-ray. She was given azithromycin and took 2 pills yesterday as well as a prescription for Tamiflu but has not filled this yet. She came in today because of persistence or worsening of all the above-mentioned symptoms. She also has anorexia and feels generally dehydrated. No fevers chills or rhinitis. She denies diarrhea. She is not really having chest or abdominal pain Hospital Course 1. Acute hypoxic and hypercarbic respiratory failure. Due to influenza pneumonia, possibly with bacterial superinfection. Infiltrates evident on x- ray. Patient was escalated from azithromycin and ceftriaxone to meropenem. The patient appeared to be worsening clinically. She needed BiPAP over night. She received antibiotics, tamiflu, but clinical status deteriorated. The family elected to pursue a morphine drip and a comfort care protocol for her. She peacefully at 00:43 on 09/16/16. 2. Sepsis. The patient has progressive deterioration in spite of all regional medical measures. She has had persistent recurrent hypotension, severe encephalopathy, advanced progressive renal failure, and persistent lactic acidosis. 3. Influenza A. POA. Continue Tamiflu 4. Possible secondary pneumonia. POA. . 5. Dementia. POA. 6. Chronic hypertension. POA. 7. Elevated troponin with history of chronic kidney disease stage 3 and previous elevations. POA. We will trend. ECG is not alarming. We will repeat her troponin today. 8. Volume depletion. POA. IV fluids. She also has low UOP. 9. Lactic acidosis, POA. Continue IVF, and ABx. Persistent despite maximal medical therapy. Exam Test 09/11/16 12:13 09/11/16 16:30 09/12/16 03:40 09/13/16 11:20 Urine Color Yellow (YELLOW) Urine Appearance Hazy (CLEAR,HAZY) Urine pH 6.0 (5.0-8.0) Urine Specific Patriot 1.018 (1.003-1.035) Urine Protein 100mg/dL (NEG,TRACE) Urine Glucose (UA) Negativemg/dL (NEGATIVE) Urine Ketones Negativemg/dL (NEGATIVE) Urine Occult Blood Moderate (NEGATIVE) Urine Nitrite Negative (NEGATIVE) Urine Bilirubin Negative (NEGATIVE) Urine Urobilinogen Normalmg/dL (NORMAL) Urine Leukocyte Esterase Negative (NEGATIVE) Urine RBC 0-2/hpf (0-2) Urine WBC 0-5/hpf (0-5) Urine Epithelial Cells Occasional/hpf (NONE-MOD) Urine Crystals Amorphous urates (NONE Urine Bacteria None/hpf (NONE-FEW) Urine Hyaline Casts Occasional/lpf (NONE) Urine Granular Casts None seen (NONE SEEN) Urine Waxy Casts None seen (NONE SEEN) Urine Red Blood Cell Casts None seen (NONE SEEN) Urine White Blood Cell Casts None seen (NONE SEEN) Urine Mucus None seen (None Seen) Urine Trichomonas None seen (NONE SEEN) Urine Yeast None (NONE SEEN) Urinalysis Comment Renal epi seen Urine Culture Reflexed Not indicated Hemoglobin A1c 5.8% (4.8-5.6) Neutrophils (%) (Auto) 86.2% (40-74) Lymphocytes (%) (Auto) 5.7% (14-46) Monocytes (%) (Auto) 7.0% (4-12) Eosinophils (%) (Auto) 0.1% (0-5) Basophils (%) (Auto) 0.3% (0-3) Procalcitonin 1.19ng/mL (See Comment) Test 09/13/16 14:10 09/14/16 05:53 09/14/16 16:21 09/15/16 05:30 Pro-B-Type Natriuretic Peptide 4170pg/mL (0-738) Prealbumin 3mg/dL (20-40) Lactic Acid Level 3.0mmol/L (0.4-2.0) Troponin T 0.042ug/L (0.0-0.011) White Blood Count 18.9th/mm3 (3.8-10.1) Red Blood Count 2.58mil/mm3 (3.90-5.20) Hemoglobin 8.5g/dL (12.0-15.6) Hematocrit 26.0% (35.0-46.0) Mean Corpuscular Volume 100.8fL (81-100) Mean Corpuscular Hemoglobin 32.9pg (27.0-35.0) Mean Corpuscular Hemoglobin Concent 32.7% (32.0-37.0) Red Cell Distribution Width 16.0% (12.3-15.4) Platelet Count 87bil/L (150-400) Sodium Level 145mEq/L (134-144) Potassium Level 4.1mEq/L (3.5-5.2) Chloride Level 112mEq/L (97-108) Carbon Dioxide Level 16mmol/L (18-29) Blood Urea Nitrogen 50mg/dL (8-27) Creatinine 2.90mg/dL (0.57-1.00) Estimat Glomerular Filtration Rate 22mL/min (>59) Glucose Level 122mg/dL (60-99) Calcium Level 7.9mg/dL (8.5-10.1) Total Bilirubin 0.4mg/dL (0.0-1.2) Aspartate Amino Transf (AST/SGOT) 128U/L (0-50) Alanine Aminotransferase (ALT/SGPT) 35U/L (0-32) Alkaline Phosphatase 151U/L (25-165) Total Protein 5.3g/dL (6.4-8.4) Albumin 1.7g/dL (3.4-5.0) Time spent 20 minutes copies to: Estelita Santos Jeffrey W MD Sep 16, 2016 18:16
== END 2016-09-16 00:43 | disposition expired | DRG 871 ==
LOC: EDBD 10:35 → SED 10:35 → PCC 13:22
PROVIDERS: ADMIT Hospitalist; ATTEND Hospitalist
PROC: 4A033R1 Measurement of Arterial Saturation, Peripheral, Percutaneous Approach (ICD-10-PCS; principal; 2016-09-13)
PROC: 5A09458 Assistance with Respiratory Ventilation, 24-96 Consecutive Hours, Intermittent Positive Airway Pressure (ICD-10-PCS; 2016-09-13)
DX: A41.9 Sepsis, unspecified organism (principal); J10.00 Influenza due to other identified influenza virus with unspecified type of pneumonia; J96.02 Acute respiratory failure with hypercapnia; J96.01 Acute respiratory failure with hypoxia; G93.40 Encephalopathy, unspecified; E87.2 Acidosis; F03.90 Unspecified dementia, unspecified severity, without behavioral disturbance, psychotic disturbance, mood disturbance, and anxiety; E11.9 Type 2 diabetes mellitus without complications; M21.379 Foot drop, unspecified foot; I12.9 Hypertensive chronic kidney disease with stage 1 through stage 4 chronic kidney disease, or unspecified chronic kidney disease; N18.3 Chronic kidney disease, stage 3 (moderate); E86.9 Volume depletion, unspecified